=== PATIENT | female | born 1980 | race Caucasian/White ===

== ENCOUNTER 2018-03-15 16:50 | Emergency (ER) | payer OTHER ==
--- NOTE | 2018-03-15 18:00 | ED Physician Documentation ---
PD HPI CHEST PAIN - Stated complaint Stated Complaint: CP/BACK PX/DIFFICULTY BREATHING - Chief complaint Chief Complaint: Cardiac - History obtained from History obtained from: Patient - History of Present Illness Timing - onset: Other (Over the last month she has had pretty 3 brief episodes of right upper chest pain that is worse if she leans forward or takes a deep breath. The first 1 was about a month ago and lasted for several hours, then had it again about a week later. Today she was sitting in a meeting and developed this again. It is gone at this juncture. She has not had recent significant travel, leg pain or swelling. No hemoptysis. She is not on control.) Review of Systems Constitutional: denies: Fever, Chills Cardiac: denies: Palpitations Respiratory: denies: Dyspnea, Cough, Hemoptysis, Wheezing GI: denies: Abdominal Pain PD PAST MEDICAL HISTORY - Allergies Allergies/Adverse Reactions: Allergies Allergy/AdvReac Type Severity Reaction Status Date / Time No Known Drug Allergies Allergy Verified 03/15/18 17:06 PD ED PE NORMAL - Vitals Vital signs reviewed: Yes - General General: Alert and oriented X 3, No acute distress - HEENT HEENT: PERRL, EOMI - Neck Neck: Supple, no meningeal sign, No bony TTP - Cardiac Cardiac: RRR, No murmur - Respiratory Respiratory: No respiratory distress, Clear bilaterally, Other (Mild right upper chest wall tenderness reproduces her pain.) - Abdomen Abdomen: Non tender - Extremities Extremities: No edema, No calf tenderness / cord Results - Vitals Vitals: Vital Signs - 24 hr 03/15/18 17:03 Temperature 36.1 C L Heart Rate 68 Respiratory 16 Rate Blood Pressure 126/71 O2 Saturation 98 Oxygen O2 Source Room air - EKG (time done) 709 Rate: Rate (enter#) (62) Rhythm: NSR [place]: Normal Intervals: Normal RI QRS: Normal Ischemia: Normal ST segments Computer interpretation: Agree with computer - Labs Labs: Laboratory Tests 03/15/18 03/15/18 03/15/18 17:54 17:54 17:54 WBC 10.0 RBC 4.95 Hgb 14.9 Hct 42.5 MCV 85.9 MCH 30.0 MCHC 35.0 RDW 12.4 Plt Count 362 MPV 7.7 L Neut # (Auto) 5.9 Lymph # (Auto) 3.1 [place] # (Auto) 0.6 Eos # (Auto) 0.3 Baso # (Auto) 0.1 Absolute Nucleated RBC 0.00 Nucleated RBC % 0.0 Sodium 137 Potassium 3.6 Chloride 103 Carbon Dioxide 25 Anion Gap 9.0 BUN 17 Creatinine 0.7 Estimated GFR (MDRD) 93 Glucose 93 Calcium 9.1 Total Bilirubin 0.4 AST 17 ALT 22 Alkaline Phosphatase 61 Troponin I < 0.04 Total Protein 8.0 Albumin 4.6 Globulin 3.4 Albumin/Globulin Ratio 1.4 Lipase 28 - Rads (name of study) CXR Radiology: EMP read contemporaneously (normal) PD MEDICAL DECISION MAKING - ED course ED course: Seems musculoskeletal, heart score 0. - Sepsis Event Vital Signs: Vital Signs - 24 hr 03/15/18 17:03 Temperature 36.1 C L Heart Rate 68 Respiratory 16 Rate Blood Pressure 126/71 O2 Saturation 98 Oxygen O2 Source Room air Departure - Departure Disposition: 01 Home, Self Care Clinical Impression: Chest wall pain Condition: Good Record reviewed to determine appropriate education?: Yes Instructions: ED Chest Pain NonCardiac Comments: Call your doctor to arrange a follow-up appointment, make the next available appointment. In the interim, return anytime if worse or if new symptoms develop.
[2018-03-15 18:02] LABS: BASOPHILS # (AUTO) 0.1 10^3/uL (0.0-0.1); BASOPHILS % (AUTO) 0.5 %; EOSINOPHILS # (AUTO) 0.3 10^3/uL (0.0-0.7); EOSINOPHILS % (AUTO) 2.9 %; HGB - HEMOGLOBIN 14.9 g/dL (12.0-16.0); LYMPHOCYTES # (AUTO) 3.1 10^3/uL (1.5-3.5); LYMPHOCYTES % (AUTO) 31.6 %; MEAN CORPUSCULAR VOLUME 85.9 fL (81.0-99.0); MEAN PLATELET VOLUME 7.7 fL (7.9-10.8); MONOCYTES # (AUTO) 0.6 10^3/uL (0.0-1.0); NEUTROPHILS # (AUTO) 5.9 10^3/uL (1.5-6.6); PLT - PLATELET COUNT 362 10^3/uL (130-450); RED BLOOD COUNT 4.95 10^6/uL (4.20-5.40); RED CELL DISTRIBUTION WIDTH 12.4 % (12.0-15.0)
[2018-03-15 18:13] LABS: ALBUMIN 4.6 g/dL (3.2-5.5); ALBUMIN/GLOBULIN RATIO 1.4 (1.0-2.2); BILIRUBIN,TOTAL 0.4 mg/dL (0.2-1.0); CALCIUM 9.1 mg/dL (8.5-10.3); CREATININE 0.7 mg/dL (0.4-1.0)
--- NOTE | 2018-03-15 18:16 | XRAY Report ---
Reason: chest pain Procedure Date: 03/15/2018 Accession Number: [id number] / [id number] Procedure: XR - Chest 2 View X-Ray CPT Code: 01583 FULL RESULT: EXAM: CHEST RADIOGRAPHY EXAM DATE: 03/15/2018 05:46 PM. CLINICAL HISTORY: Chest pain. COMPARISON: None. TECHNIQUE: 2 views. FINDINGS: Lungs/Pleura: No focal opacities evident. No pleural effusion. No pneumothorax. Normal volumes. Mediastinum: Heart and mediastinal contours are unremarkable. Other: None. IMPRESSION: 1. No acute pulmonary process. RADIA
[2018-03-15 18:25] VITALS: BP 126/59
== END 2018-03-15 18:27 | disposition home or self-care (01) ==
LOC: ED 16:50
DX: R07.89 Other chest pain (principal)
CPT/HCPCS: 36415; 71046; 80053; 83690; 84484; 85025; 93005; 99283

== ENCOUNTER 2021-10-26 14:32 | Emergency (ER) | payer OTHER ==
[2021-10-26 14:46] VITALS: BP 136/82
--- NOTE | 2021-10-26 15:20 | ED Physician Documentation ---
PD HPI LOWER EXT INJURY - Stated complaint Stated Complaint: RT LEG INJ - Chief complaint Chief Complaint: Ext Problem - History obtained from History obtained from: Patient - History of Present Illness PD HPI LOW EXT INJURY LOCATION: Right, Calf Type of injury: Twist (playing pickleball and went to jump slightly and felt a pop and pain in back of calf. Pain with walking, the step off portion of gait. Less pain if walks flatfooted. No bruising.) Where injury occurred[place] Timing - onset: Yesterday Timing - duration: Days (1) Timing - details: Abrupt onset, Still present Improved by: Rest Worsened by: Moving (walking and plantarflexion.), Palpating Associated symptoms: Swelling (some in calf but mild.). No: Weakness, Numbness, Discolored (no bruising as yet.) Similar symptoms before: Has not had sx before Review of Systems Skin: denies: Abrasion (s), Laceration (s) Musculoskeletal: denies: Back pain Neurologic: denies: Focal weakness, Numbness PD PAST MEDICAL HISTORY - Past Medical History Cardiovascular: None Respiratory: None Endocrine/Autoimmune: None Musculoskeletal: None - Allergies Allergies/Adverse Reactions: Allergies Allergy/AdvReac Type Severity Reaction Status Date / Time No Known Drug Allergies Allergy Verified 10/26/21 14:45 PD ED PE NORMAL - Vitals Vital signs reviewed: Yes - General General: Alert and oriented X 3, No acute distress, Well developed/nourished - Derm Derm: Normal color, Warm and dry, No rash - Extremities Extremities: Other (right dalf with tenderness mid calf, more lateral than medial. No soft spot noted. The Achilles tendon is intact and not tender. Plantarflexion is painful but no obvious bunching of muscle in calf area. ) - Neuro Neuro: Alert and oriented X 3, No motor deficit, No sensory deficit Results - Vitals Vitals: Oxygen O2 Source Room air PD MEDICAL DECISION MAKING - ED course Complexity details: considered differential (clinically a tear of portion of calf muscle. Not tender over fibula nor ankle. Achilles is not tender/injured. Can treat with guarding ROM of the ankle to lessen calf muscle use.), d/w patient Departure - Departure Disposition: 01 Home, Self Care Clinical Impression: Gastrocnemius muscle tear Qualifiers: Encounter type: initial encounter Laterality: right Qualified Code(s): S86.111A - Strain of other muscle(s) and tendon(s) of posterior muscle group at lower leg level, right leg, initial encounter Condition: Stable Record reviewed to determine appropriate education?: Yes Instructions: Gastrocnemius Muscle Tear Follow-Up: Orthopedic Care [Provider Group] Comments: Use the boot orthosis to reduce motion and stress on the calf muscles while this is healing. It sounds likely that you have a small tear of muscle fibers in the calf muscle. This should heal with protected use over the next 2 to 3 weeks. Elevate ice and rest the calf periodically over the next couple of days. Avoid jumping, running or forceful use of the ankle and calf muscles while its healin g. Again use the cast boot to reduce and protect motion in the calf muscles initially. You can discontinue use of it as you are feeling better but still avoid vigorous use of the muscles for about 2 to 3 weeks until fully healed. It could take even a little bit longer to be without pain on use but a few weeks should be time enough for it to be healing reasonably. Follow-up with orthopedics if not steadily improving over the next few weeks. Discharge Date/Time: 10/26/21 16:05
== END 2021-10-26 16:05 | disposition home or self-care (01) ==
LOC: ED 14:32
DX: S86.111A Strain of other muscle(s) and tendon(s) of posterior muscle group at lower leg level, right leg, initial encounter (principal); X50.1XXA Overexertion from prolonged static or awkward postures, initial encounter; Y93.67 Activity, basketball; Y92.830 Public park as the place of occurrence of the external cause
CPT/HCPCS: 99282

== ENCOUNTER 2022-03-14 19:41 | Emergency (ER) | payer OTHER ==
[2022-03-14] MEDS ORDERED: IBUPROFEN 600 MG TABLET PO STA (21:40)
--- NOTE | 2022-03-14 21:43 | ED Physician Documentation ---
PD HPI LOWER EXT INJURY - Stated complaint Stated Complaint: R LEG INJ - Chief complaint Chief Complaint: Trauma Ext - History obtained from History obtained from: Patient - Additional information Additional information: The patient comes to the emergency department chief complaint of right calf pain and swelling after an injury approximately an hour ago. The patient states she was playing volleyball when she went to jump for a ball and felt a sudden pop and "squishy" in her right calf muscle. She states that she has noticed pain migrating through her entire calf and some swelling as well. Patient denies numbness or tingling. 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 She states she has had a muscle strain previously in her calf she does not remember which one. The patient states that this was earlier this year. No other complaints at this time. The patient was not injured in any other way. She states there is no pain or swelling prior to the injury. She is very active. She states that her sister had a blood clot after being bedbound with sepsis. Review of Systems Ten Systems: 10 systems reviewed and negative Constitutional: reports: Reviewed and negative Eyes: reports: Reviewed and negative Ears: reports: Reviewed and negative Nose: reports: Reviewed and negative Throat: reports: Reviewed and negative Cardiac: reports: Reviewed and negative Respiratory: reports: Reviewed and negative GI: reports: Reviewed and negative : reports: Reviewed and negative Skin: reports: Reviewed and negative Musculoskeletal: reports: Extremity pain, Extremity swelling, Pain with weight bearing Neurologic: reports: Reviewed and negative Psychiatric: reports: Reviewed and negative Endocrine: reports: Reviewed and negative Immunocompromised: reports: Reviewed and negative PD PAST MEDICAL HISTORY - Past Medical History Cardiovascular: None Respiratory: None Endocrine/Autoimmune: None Musculoskeletal: None - Present Medications Home Medications: Ambulatory Orders Medication Instructions Recorded Confirmed Phentermine HCl 30 mg PO DAILY 03/14/22 03/14/22 - Allergies Allergies/Adverse Reactions: Allergies Allergy/AdvReac Type Severity Reaction Status Date / Time No Known Drug Allergies Allergy Verified 03/14/22 19:59 PD ED PE NORMAL - Vitals Vital signs reviewed: Yes - General General: Alert and oriented X 3, No acute distress, Well developed/nourished - HEENT HEENT: Atraumatic, PERRL, EOMI, Moist mucous membranes - Neck Neck: Supple, no meningeal sign - Cardiac Cardiac: Strong equal pulses - Respiratory Respiratory: No respiratory distress - Derm Derm: Normal color, Warm and dry, No rash - Extremities Extremities: No deformity, Other (Moderate tenderness right calf. No firmness. Patient's Achilles tendon is intact. No joint tenderness or swelling. No deformity.) - Neuro Neuro: Alert and oriented X 3 - Psych Psych: Normal mood, Normal affect Results - Vitals Vitals: Vital Signs - 24 hr 03/14/22 03/14/22 19:54 21:51 Temperature 36.5 C Heart Rate 72 74 Respiratory 16 14 Rate Blood Pressure 144/85 H 136/92 H O2 Saturation 98 98 Oxygen O2 Source Room air PD MEDICAL DECISION MAKING - ED course Complexity details: considered differential, d/w patient ED course: I discussed with the patient that I feel her symptoms are most consistent with a muscle strain. At this point in time, I do not find any evidence of a compartment syndrome and feel this is unlikely. We have discussed symptoms which should raise concern for compartment syndrome and should prompt the patient to return to the emergency department without delay. At this point in time, I have recommended elevation, ice, and anti-inflammatories. Departure - Departure Disposition: 01 Home, Self Care Clinical Impression: Strain of right calf muscle Condition: Stable Instructions: ED Strain Muscle Ext Forms: Activity restrictions Discharge Date/Time: 03/14/22 21:51
[2022-03-14] MEDS ORDERED: IBUPROFEN 800 MG TABLET PO STA (21:44)
[2022-03-14 21:52] VITALS: BP 136/92
== END 2022-03-14 21:51 | disposition home or self-care (01) ==
LOC: ED 19:41
DX: S86.911A Strain of unspecified muscle(s) and tendon(s) at lower leg level, right leg, initial encounter (principal); X58.XXXA Exposure to other specified factors, initial encounter; Y93.68 Activity, volleyball (beach) (court)
CPT/HCPCS: 99282; A9270

== ENCOUNTER 2023-01-27 14:39 | Outpatient (CLI) | payer OTHER ==
--- NOTE | 2023-02-01 09:13 | Ultrasound Report ---
PROCEDURE: Pelvic w/Transvaginal INDICATIONS: PELVIC PAIN TECHNIQUE: Real-time scanning was performed of the pelvic organs, with image documentation. Additional endovagi nal scanning was necessary due to incomplete visualization of the adnexal and endometrial structures by transabdominal scanning. COMPARISON: None. FINDINGS: Uterus: Uterus is anteverted and normal in size at 9.0 x 3.4 x 4.3 cm. The myometrium is homogeneou s. The endometrium measures 0.4 mm in combined thickness. Echogenic focus within the cervix measuri ng 7 x 8 x 7 mm. Ovaries: The right ovary measures 2.8 x 1.0 x 1.7 cm, with a calculated ovarian volume of 2.5 cc. T he left ovary measures 1.6 x 1.2 x 1.4 cm, with a calculated ovarian volume of 25 cc. The ovaries cerda ve a normal sonographic appearance. Less than 12 follicles can be seen in each ovary. No adnexal ma sses are seen. No cystic lesions measuring greater than 3 cm. Other: No pathologic free abdominal or pelvic fluid. IMPRESSION: Echogenic focus at the cervix measuring 7 x 8 x 7 mm. Findings probably represent a hemorrhagic nabot hian cyst or proteinaceous nabothian cyst, less likely solid mass. Recommend follow-up in 3 months to ensure resolution. Reviewed by: Guillermo Michaud on 02/01/2023 9:11 AM PDT Approved by: Guillermo Michaud on 02/01/2023 9:11 AM PDT Station ID: [id number]
== END 2023-01-27 14:40 | disposition home or self-care (01) ==
LOC: DI 14:39
PROVIDERS: ATTEND Student in an Organized Health Care Education/Training Program
DX: R10.2 Pelvic and perineal pain (principal); R93.89 Abnormal findings on diagnostic imaging of other specified body structures

== ENCOUNTER 2023-03-22 06:49 | Outpatient (CLI) | payer OTHER ==
[2023-03-23 07:10] LABS: ESTRADIOL 67.3 pg/mL (.); PROGESTERONE 0.2 ng/mL (.); SEX HORM BINDING GLOB SERUM 27.6 nmol/L (24.6-122.0)
[2023-03-23 20:07] LABS: FREE TESTOSTERONE(DIRECT) 2.4 pg/mL (0.0-4.2)
[2023-03-27 11:09] LABS: DHEA SERUM 197 ng/dL (31-701)
[2023-03-28 01:08] LABS: 17-OH PROGESTERONE LCMS 23 ng/dL (.)
== END 2023-03-22 06:50 | disposition home or self-care (01) ==
LOC: LAB 06:49
PROVIDERS: ATTEND Nurse Practitioner
DX: N95.1 Menopausal and female climacteric states (principal)
CPT/HCPCS: 36415; 82397; 82626; 82670; 83001; 83498; 84144; 84270; 84402; 84403

== ENCOUNTER 2023-04-23 20:44 | Emergency (ER) | payer OTHER ==
[2023-04-23 21:01] VITALS: BP 141/84; O2SAT 100
[2023-04-23] MEDS ORDERED: DEXAMETHASONE 10 MG/ML VIAL PO STA (21:13)
[2023-04-23] MEDS ORDERED: CHERRY SYRUP 10 ML UDC PO ONE (21:13)
[2023-04-23 21:15] LABS: RAPID STREP SCREEN Negative (Negative)
--- NOTE | 2023-04-23 21:30 | ED Physician Documentation ---
History of Present Illness - Stated complaint Stated Complaint: THROAT PX - Chief complaint Chief Complaint: Heent - Additonal information Additional information: 42-year-old female here for evaluation of a sore throat that began with cough cold and congestion about 1 week ago. No fevers nausea vomiting chest pain or shortness of air. Mostly concerned she could have strep. Review of Systems Constitutional: denies: Fever Nose: reports: Congestion Throat: reports: Sore throat Respiratory: reports: Cough. denies: Dyspnea GI: reports: Reviewed and negative PD PAST MEDICAL HISTORY - Past Medical History Cardiovascular: None Respiratory: None Endocrine/Autoimmune: None Musculoskeletal: None - Past Surgical History Past Surgical History: Yes General: Appendectomy - Present Medications Home Medications: Ambulatory Orders Medication Instructions Recorded Confirmed Phentermine HCl 30 mg PO DAILY 03/14/22 04/23/23 - Allergies Allergies/Adverse Reactions: Allergies Allergy/AdvReac Type Severity Reaction Status Date / Time No Known Drug Allergies Allergy Verified 04/23/23 20:54 - Social History Does the pt smoke?: No Smoking Status: Never smoker Does the pt drink ETOH?: Yes Does the pt have substance abuse?: No - Immunizations Immunizations are current?: Yes PD ED PE NORMAL - General General: Alert and oriented X 3, No acute distress, Well developed/nourished - HEENT HEENT: Atraumatic, Moist mucous membranes, Pharynx benign (no posterior oropharynx erythema or exudate. Uvula is midline. No soft palate asymmetry or swelling. No posterior pharynx erythema. No exudate. Uvula is midline. No soft palate asymmetry or swelling.) - Neck Neck: No adenopathy - Cardiac Cardiac: RRR, No murmur - Respiratory Respiratory: Clear bilaterally Results - Vitals Vitals: Vital Signs - 24 hr 04/23/23 20:51 Temperature 37 C Heart Rate 88 Respiratory 16 Rate Blood Pressure 141/84 H O2 Saturation 100 Oxygen O2 Source Room air - Labs Labs: Laboratory Tests 04/23/23 21:01 Group A Strep Rapid Negative PD Medical Decision Making - ED course Complexity details: reviewed results, re-evaluated patient, d/w patient ED course: For well-appearing 42-year-old female here for evaluation of several days sore throat in the setting of previous cough congestion. No fevers. Is very benign ENT exam. Clinically history is most suggestive of a viral pharyngitis. Rapid strep is negative. Patient was given a single dose of Decadron here in the ER. Will defer antibiotics unless culture positive. Clinically there is nothing to suggest RPA or [employer] IT PROJECT [employer]. Usual emergent return precautions were discussed for worsening symptoms. Departure - Departure Disposition: 01 Home, Self Care Clinical Impression: Viral pharyngitis Condition: Stable Record reviewed to determine appropriate education?: Yes Instructions: ED Pharyngitis Viral Comments: your strep testing today is negative. A virus has most likely caused yoru symptoms. We have given you a single dose of a steroid today which will help with pain and inflammation over the next3-4 days. i would expect your symptoms to be improving markedly over the next several days. Return sooner to the ED for worsening symptoms, inability to swallow or speak normally Forms: PCP List
== END 2023-04-23 21:38 | disposition home or self-care (01) ==
LOC: ED 20:44
DX: J02.9 Acute pharyngitis, unspecified (principal)
CPT/HCPCS: 87070; 87430; 99283; A9270

== ENCOUNTER 2023-04-24 18:47 | Outpatient (CLI) | payer OTHER ==
--- NOTE | 2023-04-25 19:19 | Ultrasound Report ---
PROCEDURE: Pelvic w/Transvaginal INDICATIONS: IRREGULAR PERIODS TECHNIQUE: Real-time scanning was performed of the pelvic organs, with image documentation. Additional endovagi nal scanning was necessary due to incomplete visualization of the adnexal and endometrial structures by transabdominal scanning. COMPARISON: 01/27/2023 FINDINGS: Uterus: Uterus is anteverted and normal in size at 9.1 x 4.0 x 5.0 cm. The myometrium is heterogene ous. The endometrium measures 12.4 mm in combined thickness. No fibroids. There is stable clustered calcifications in the cervix. Ovaries: The right ovary measures 2.2 x 2.1 x 2.1 cm, with a calculated ovarian volume of 5 cc. The left ovary measures 3.2 x 3.1 x 3.3 cm, with a calculated ovarian volume of 16.5 cc. The ovaries cerda ve a normal sonographic appearance. Less than 12 follicles can be seen in each ovary. No adnexal ma sses are seen. No cystic lesions measuring greater than 3 cm. There is a 1.2 cm cyst in the right ova ry. There is a 1.7 cm cyst in the left ovary. Other: No pathologic free abdominal or pelvic fluid. IMPRESSION: 1. Stable clustered calcifications in the cervix. 2. Otherwise unremarkable pelvic ultrasound. Reviewed by: Joshua Larose MD on 04/25/2023 7:18 PM PST Approved by: Joshua Larose MD on 04/25/2023 7:18 PM PST Station ID: [id number]
== END 2023-04-24 18:48 | disposition home or self-care (01) ==
LOC: DI 18:47
PROVIDERS: ATTEND Nurse Practitioner
DX: N88.8 Other specified noninflammatory disorders of cervix uteri (principal); N92.6 Irregular menstruation, unspecified

== ENCOUNTER 2023-05-09 12:57 | Outpatient (CLI) | payer OTHER ==
[~2023-05-09 12:57] MED LIST: GADOTERATE MEGLUMINE 10 MMOL/20 ML VIAL ONE
[2023-05-09] MEDS ORDERED: GADOTERATE MEGLUMINE 10 MMOL/20 ML VIAL IVP ONE (18:26)
--- NOTE | 2023-05-10 09:11 | MRI Report ---
PROCEDURE: PELVIS W/WO INDICATIONS: PELVIC PAIN TECHNIQUE: Multiple magnetic resonance images were obtained of the pelvis with and without contrast. IV contrast was used. COMPARISON: Pelvic ultrasound 04/24/2023 FINDINGS: Image quality: There is mild motion artifact on some sequences. Lower abdomen: No bowel obstruction. No pathologic ascites or abscess. Bladder: Underdistended, unremarkable. Reproductive organs: The cervix appears unremarkable, a few small nabothian cysts are seen. The endom etrium measures 9 to 10 mm, which is within normal limits for age. No discrete endometrial mass lesio n identified. The anterior junctional zone is focally thickened measuring about 1.3 cm. The posterior junctional zone is normal thickness. The ovaries appear nonenlarged, with small follicles. On precontrast T1-weighted images, no evidence of deep pelvic endometriosis deposits or endometrioma. One of the nabothian cysts identified in the left lower cervix has hyperintense T1 signal (). Rectum: Unremarkable Vessels and lymph nodes: No aneurysmal vessel or pathologic lymph nodes identified. Pelvic wall: Unremarkable Bones: No acute or suspicious finding. Lower lumbar degenerative changes are partially seen. IMPRESSION: No evidence of endometrioma or deep pelvic active T1 hyperintense endometriosis deposits. There are small nabothian cysts in the cervix, including intrinsically T1 hyperintense cysts in the l eft lower segment, which may represent hemorrhagic contents Focal thickening of the anterior junctional zone the uterus measuring 1.3 cm in thickness, which may represent focal adenomyosis versus a FIGO 2 fibroid. Reviewed by: Jl Diaz MD on 05/10/2023 9:10 AM PST Approved by: Jl Diaz MD on 05/10/2023 9:10 AM PST Station ID: [id number]
== END 2023-05-09 12:58 | disposition home or self-care (01) ==
LOC: DI 12:57
PROVIDERS: ATTEND Nurse Practitioner
DX: N88.8 Other specified noninflammatory disorders of cervix uteri (principal); R10.2 Pelvic and perineal pain
CPT/HCPCS: 72197; A9575

== ENCOUNTER 2023-06-20 10:45 | Outpatient (CLI) | payer OTHER | END 2023-06-20 11:00 | disposition home or self-care (01) | LOC: LAB.N 10:45 | PROVIDERS: ATTEND Physician Assistant Medical | DX: J02.9 Acute pharyngitis, unspecified (principal) | CPT/HCPCS: 87070 ==

== ENCOUNTER 2023-06-24 07:31 | Emergency (ER) | payer OTHER ==
[2023-06-24 08:27] VITALS: BP 148/81; O2SAT 98
[2023-06-24 09:02] LABS: RAPID STREP SCREEN Negative (Negative)
[2023-06-24 09:39] LABS: B. PARAPERTUSSIS- RESP PCR PAN NOT DETECTED; B. PERTUSSIS- RESP PCR PANEL NOT DETECTED; C. PNEUMONIAE- RESP PCR PANEL NOT DETECTED; CORONAVIRUS 229E-RESP PCR NOT DETECTED; CORONAVIRUS HKU1-RESP PCR NOT DETECTED; CORONAVIRUS NL63-RESP PCR NOT DETECTED; CORONAVIRUS OC43-RESP PCR NOT DETECTED; HUMAN METAPNEUMOVIRUS NOT DETECTED; INFLUENZA A- RESP PCR PANEL NOT DETECTED; INFLUENZA B - RESP PCR PANEL NOT DETECTED; M. PNEUMONIAE- RESP PCR PANEL NOT DETECTED; PARAINFLUENZA VIRUS 1 NOT DETECTED; PARAINFLUENZA VIRUS 2 NOT DETECTED; PARAINFLUENZA VIRUS 3 NOT DETECTED; PARAINFLUENZA VIRUS 4 NOT DETECTED; RHINOVIRUS/ENTEROVIRUS NOT DETECTED; RSV- RESP PCR PANEL NOT DETECTED; SARS-CoV-2 -RESP PCR PANEL NOT DETECTED
== END 2023-06-24 08:52 | disposition left against medical advice (07) ==
LOC: ED 07:31
DX: Z53.21 Procedure and treatment not carried out due to patient leaving prior to being seen by health care provider (principal)
CPT/HCPCS: 87070; 87430; 87633

== ENCOUNTER 2023-09-25 19:31 | Emergency (ER) | payer OTHER ==
[2023-09-25 20:19] LABS: BASOPHILS % (AUTO) 0.2 %; EOSINOPHILS % (AUTO) 0.2 %; HCT - HEMATOCRIT 43.4 % (37.0-47.0); HGB - HEMOGLOBIN 14.3 g/dL (12.0-16.0); LYMPHOCYTES # (AUTO) 0.7 10^3/uL (1.5-3.5); LYMPHOCYTES % (AUTO) 5.2 %; MEAN CORPUSCULAR HEMOGLOBIN 27.1 pg (27.0-31.0); MEAN CORPUSCULAR HGB CONC 32.9 g/dL (32.0-36.0); MEAN CORPUSCULAR VOLUME 82.4 fL (81.0-99.0); MEAN PLATELET VOLUME 9.5 fL (7.9-10.8); MONOCYTES # (AUTO) 0.4 10^3/uL (0.0-1.0); MONOCYTES % (AUTO) 3.4 %; NEUTROPHILS # (AUTO) 11.8 10^3/uL (1.5-6.6); NEUTROPHILS % (AUTO) 90.6 %; PLT - PLATELET COUNT 389 10^3/uL (130-450); RED BLOOD COUNT 5.27 10^6/uL (4.20-5.40); RED CELL DISTRIBUTION WIDTH 13.5 % (12.0-15.0)
[2023-09-25 20:30] LABS: ALBUMIN 4.2 g/dL (3.2-5.5); ALBUMIN/GLOBULIN RATIO 1.2 (1.0-2.2); ALKALINE PHOSPHATASE 79 IU/L (42-121); ALT ALANINE AMINOTRANSFERASE 24 IU/L (10-60); AST ASPARTATE AMINOTRANSFERASE 15 IU/L (10-42); BILIRUBIN,TOTAL 0.5 mg/dL (0.2-1.0); BUN - BLOOD UREA NITROGEN 13 mg/dL (6-20); CALCIUM 9.1 mg/dL (8.5-10.3); CARBON DIOXIDE - CO2 23 mmol/L (21-32); CHLORIDE 104 mmol/L (101-111); CREATININE 0.7 mg/dL (0.6-1.3); GFR - MDRD 91 (>89); GLUCOSE 112 mg/dL (74-104); POTASSIUM 3.6 mmol/L (3.5-4.5); SODIUM 135 mmol/L (135-145); TOTAL PROTEIN 7.6 g/dL (6.4-8.9)
--- NOTE | 2023-09-25 20:30 | ED Physician Documentation ---
History of Present Illness - Stated complaint Stated Complaint: N/V/D - Chief complaint Chief Complaint: Abd Pain - Additonal information Additional information: Patient 42-year-old female presenting to the emergency department with chief co mplaint abdominal pain, nausea, vomiting, diarrhea. Symptoms ongoing x 2-3 days. Has been intolerant of p.o. fluids for the last 2- 3 days. Reports 1 known sick contact, older son had similar symptoms approximately 1 week ago. Reports subjective fever at home. Endorses for history of previous appendectomy in childhood. Denies other surgical history. Review of Systems Constitutional: reports: Fever Eyes: denies: Loss of vision Ears: denies: Loss of hearing Nose: denies: Rhinorrhea / runny nose Throat: denies: Dental pain / toothache Cardiac: denies: Chest pain / pressure Respiratory: denies: Dyspnea GI: reports: Abdominal Pain, Nausea, Vomiting, Diarrhea : denies: Dysuria Skin: denies: Rash Musculoskeletal: denies: Neck pain Neurologic: denies: Generalized weakness Psychiatric: denies: Depressed PD PAST MEDICAL HISTORY - Past Medical History Past Medical History: No Cardiovascular: None Respiratory: None Endocrine/Autoimmune: None Musculoskeletal: None - Past Surgical History Past Surgical History: Yes General: Appendectomy - Present Medications Home Medications: Ambulatory Orders Medication Instructions Recorded Confirmed Phentermine HCl 30 mg PO DAILY 03/14/22 09/25/23 Loratadine [Claritin] 10 mg PO DAILY 09/25/23 09/25/23 Ondansetron Odt [Zofran] 4 mg TL Q6H PRN #10 tablet 09/25/23 buPROPion [Wellbutrin Sr] 150 mg PO DAILY 09/25/23 09/25/23 - Allergies Allergies/Adverse Reactions: Allergies Allergy/AdvReac Type Severity Reaction Status Date / Time No Known Drug Allergies Allergy Verified 09/25/23 19:44 - Social History Does the pt smoke?: No Smoking Status: Never smoker Does the pt drink ETOH?: Yes Does the pt have substance abuse?: No - Immunizations Immunizations are current?: Yes PD ED PE NORMAL - General General: Alert and oriented X 3, No acute distress, Well developed/nourished - HEENT HEENT: Atraumatic, PERRL, EOMI, Ears normal, Moist mucous membranes, Pharynx benign - Neck Neck: Supple, no meningeal sign, No bony TTP, No adenopathy, Thyroid normal, No JVD - Cardiac Cardiac: RRR - Respiratory Respiratory: No respiratory distress - Abdomen Abdomen: Normal bowel sounds, Other (Diffuse tenderness without guarding, rebound, rigidity.). No: Non tender - Female Female : Deferred - Rectal Rectal: Deferred - Back Back: No CVA TTP Results - Vitals Vitals: Vital Signs - 24 hr 09/25/23 09/25/23 09/25/23 19:40 21:44 22:22 Temperature 36.5 C Heart Rate 94 82 80 Respiratory 15 16 16 Rate Blood Pressure 130/65 119/62 O2 Saturation 100 100 100 Oxygen O2 Source Room air - Labs Labs: Laboratory Tests 09/25/23 09/25/23 09/25/23 19:59 19:59 20:39 WBC 13.0 H RBC 5.27 Hgb 14.3 Hct 43.4 MCV 82.4 MCH 27.1 MCHC 32.9 RDW 13.5 Plt Count 389 MPV 9.5 Neut # (Auto) 11.8 H Lymph # (Auto) 0.7 L [place] # (Auto) 0.4 Eos # (Auto) 0.0 Baso # (Auto) 0.0 Absolute Nucleated RBC 0.00 Nucleated RBC % 0.0 Sodium 135 Potassium 3.6 Chloride 104 Carbon Dioxide 23 Anion Gap 8.0 BUN 13 Creatinine 0.7 Estimated GFR (MDRD) 91 Glucose 112 H Calcium 9.1 Total Bilirubin 0.5 AST 15 ALT 24 Alkaline Phosphatase 79 Total Protein 7.6 Albumin 4.2 Globulin 3.4 Albumin/Globulin Ratio 1.2 Lipase < 10 L Urine Color YELLOW Urine Clarity CLEAR Urine pH 6.0 Ur Specific George 1.025 Urine Protein NEGATIVE Urine Glucose (UA) NEGATIVE Urine Ketones NEGATIVE Urine Occult Blood NEGATIVE Urine Nitrite NEGATIVE Urine Bilirubin NEGATIVE Urine Urobilinogen 0.2 (NORMAL) Ur Leukocyte Esterase NEGATIVE Ur Microscopic Review NOT INDICATED Urine Culture Comments NOT INDICATED Urine HCG, Qual 09/25/23 20:39 WBC RBC Hgb Hct MCV MCH MCHC RDW Plt Count MPV Neut # (Auto) Lymph # (Auto) [place] # (Auto) Eos # (Auto) Baso # (Auto) Absolute Nucleated RBC Nucleated RBC % Sodium Potassium Chloride Carbon Dioxide Anion Gap BUN Creatinine Estimated GFR (MDRD) Glucose Calcium Total Bilirubin AST ALT Alkaline Phosphatase Total Protein Albumin Globulin Albumin/Globulin Ratio Lipase Urine Color Urine Clarity Urine pH Ur Specific George Urine Protein Urine Glucose (UA) Urine Ketones Urine Occult Blood Urine Nitrite Urine Bilirubin Urine Urobilinogen Ur Leukocyte Esterase Ur Microscopic Review Urine Culture Comments Urine HCG, Qual NEGATIVE PD Medical Decision Making - ED course Complexity details: reviewed results, re-evaluated patient, considered elsie damian, d/w patient ED course: Patient 42-year-old female presenting to the emergency department with nausea, vomiting, diarrhea, abdominal pain. Afebrile, he medically stable. Initial differential diagnosis included but not limited to perforated viscus, bowel obstruction, viral enteritis. Labs demonstrate mild leukocytosis but no leukocytosis but no severe electrolyte abnormality, renal or hepatic dysfunction. CT of the abdomen pelvis shows fluid-filled loops of bowel consistent with enteritis, likely viral as well as some hepatic steatosis and an incidentally noted pulmonary nodule. All results communicated directly to patient. Patient received medication for pain control and was monitored carefully after its administration as well as medication for nausea and vomiting. Will discharge course antinausea medications and encourage follow-up with primary care. Clear return precautions given. Departure - Departure Disposition: 01 Home, Self Care Clinical Impression: Viral enteritis, Hepatic steatosis, Pulmonary nodule Instructions: ED Viral Syndrome Prescriptions: Ondansetron Odt [Zofran] 4 mg TL Q6H PRN #10 tablet PRN Reason: Nausea / Vomiting Comments: Thank you for allowing us to care for you today [facility]. Today in the emergency department you were evaluated for any possible dangerous or life-threatening medical emergency. All the testing performed in the emergen cy department today was very reassuring. Your CT scan showed findings consistent with a viral enteritis or stomach bug. I written medication for pain control as well as some medication to have at home for any ongoing nausea. Please endeavor to stay well-hydrated at home by having small continual sips of fluid throughout the days. Your symptoms should be resolving within the next few days. If they worsen at any time or if they are persistent with no appreciable improvement within the next 3 to 4 days please follow-up with your primary care doctor or return to the emergency department. As an incidental finding you were noted to have some hepatic steatosis, this is not an uncommon finding for those who eat a Western high triglyceride diet but it is something you want to follow-up with your primary care doctor concerning. You were also found to have a very small pulmonary nodule that may also require some follow-up. Forms: PCP List
[2023-09-25 20:32] LABS: LIPASE < 10 U/L (11-82)
[2023-09-25] MEDS: SODIUM CHLORIDE 0.9% 1,000 ML IV STA (20:40)
[2023-09-25] MEDS: ONDANSETRON 4 MG/2 ML VIAL IVP STA (20:42)
[2023-09-25 20:47] LABS: BILIRUBIN,URINE NEGATIVE (NEGATIVE); GLUCOSE, URINE (UA) NEGATIVE (NEGATIVE); KETONES,URINE (UA) NEGATIVE (NEGATIVE); LEUKOCYTE ESTERASE, URINE NEGATIVE (NEGATIVE); NITRITE,URINE NEGATIVE (NEGATIVE); OCCULT BLOOD,URINE NEGATIVE (NEGATIVE); PROTEIN,URINE NEGATIVE (NEGATIVE); UROBILINOGEN,URINE 0.2 (NORMAL) E.U./dL (NORMAL)
[2023-09-25 20:49] LABS: CLARITY,URINE CLEAR (CLEAR); HCG UR QUAL NEGATIVE
[2023-09-25] MEDS: HYDROmorphone 1 MG/ML CARPUJECT IVP STA (20:49)
[2023-09-25] MEDS ORDERED: iohexoL-300 100 ML VIAL ONE (20:49)
[2023-09-25] MEDS: iohexoL-300 100 ML VIAL IVP ONE (21:10)
--- NOTE | 2023-09-25 22:13 | CT Report ---
PROCEDURE: Abdomen/Pelvis W INDICATIONS: Diffuse abd pain CONTRAST: Omni 300 100ml TECHNIQUE: After the administration of intravenous contrast, a CT scan of the abdomen and pelvis was performed. Images were recorded and evaluated at appropriate window settings. Reformats: coronal and sagittal. F or radiation dose reduction, the following was used: automated exposure control, adjustment of mA and /or kV according to patient size. COMPARISON: Pelvic MRI pelvis, 05/09/2026. Pelvic ultrasound, 04/24/2023. FINDINGS: Image quality: Diagnostic. Lower chest: There is a 3 mm nodule in the left lower lobe (series 8 image 22). Liver: Normal size. Mild hepatic steatosis. No solid mass. Gallbladder and biliary tree: Gallbladder is normal. No biliary dilation Spleen: No splenomegaly. Pancreas: No pancreatic ductal dilation. Adrenals: No adrenal nodule. Kidneys and ureters: No hydronephrosis. No renal cystic lesion which requires follow up. No solid mas s. There is a 3 mm nonobstructive stone in the inferior pole of left kidney. Stomach, bowel and peritoneum: No bowel distension. No pathologic free fluid. Fluid-filled loops of s mall bowel and proximal colon, nonspecific suggesting enteritis. Lymph nodes: No central or retroperitoneal adenopathy. Vessels: No infrarenal aortic aneurysm. PELVIS Reproductive organs: Unremarkable. Bladder: No abnormal wall thickening, accounting for underdistention. Pelvic lymph nodes: No pelvic adenopathy by size criteria. Bones: No aggressive osseous abnormality. Other: No significant ventral or inguinal hernia. IMPRESSION: 1. Fluid-filled loops of small bowel and proximal colon suggesting mild enteritis. 2. Mild hepatic steatosis. 3. A small nonobstructive left renal stone. 4. A 3 mm nodule in the left lower lobe. Please see enclosed follow-up recommendation. Fleischner Society criteria for SOLID lung nodule followup. Nodule size (mm)Low-risk patientHigh-risk patient "d4No follow-up neededFollow-up at 12 mo; if no change, no further follow-up >[id number] CT at 12 mo; if no change, no further follow-up needed.Initial follow-up CT at 6-12 mo, then 18-24 mo if no change. >6-8Initial follow-up CT at 6-12 mo, then 18-24 mo if no change. Initial follow-up CT at 3-6 mo, then 9-12 mo and 24 mo if no change. >8Follow-up CT at 3, 9, 24 mo. Or PET and/or biopsy.Same as for low-risk pts. Reviewed by: Claudia Clinton MD on 09/25/2023 10:12 PM PDT Approved by: Claudia Clinton MD on 09/25/2023 10:12 PM PDT Station ID: [id number]
[2023-09-25] MEDS: HYDROcod/ACET 5/325 Prepack 4 PO STA (22:39)
[2023-09-25] MEDS: ONDANSETRON ODT 4 MG Prepack 2 TL PRN (22:39)
[2023-09-25 22:43] VITALS: BP 116/85; O2SAT 98
[2023-09-25 23:23] LABS: B. PARAPERTUSSIS- RESP PCR PAN NOT DETECTED; B. PERTUSSIS- RESP PCR PANEL NOT DETECTED; C. PNEUMONIAE- RESP PCR PANEL NOT DETECTED; CORONAVIRUS 229E-RESP PCR NOT DETECTED; CORONAVIRUS HKU1-RESP PCR NOT DETECTED; CORONAVIRUS NL63-RESP PCR NOT DETECTED; CORONAVIRUS OC43-RESP PCR NOT DETECTED; HUMAN METAPNEUMOVIRUS NOT DETECTED; INFLUENZA A- RESP PCR PANEL NOT DETECTED; INFLUENZA B - RESP PCR PANEL NOT DETECTED; M. PNEUMONIAE- RESP PCR PANEL NOT DETECTED; PARAINFLUENZA VIRUS 1 NOT DETECTED; PARAINFLUENZA VIRUS 2 NOT DETECTED; PARAINFLUENZA VIRUS 3 NOT DETECTED; PARAINFLUENZA VIRUS 4 NOT DETECTED; RHINOVIRUS/ENTEROVIRUS NOT DETECTED; RSV- RESP PCR PANEL NOT DETECTED; SARS-CoV-2 -RESP PCR PANEL NOT DETECTED
== END 2023-09-25 22:47 | disposition home or self-care (01) ==
LOC: ED 19:31
DX: A08.4 Viral intestinal infection, unspecified (principal); N28.89 Other specified disorders of kidney and ureter; R91.1 Solitary pulmonary nodule; Z11.52 Encounter for screening for COVID-19
CPT/HCPCS: 36415; 74177; 80053; 81003; 81025; 83690; 85025; 87633; 96361; 96374; 96375; 99284; A9270; J1170; Q9967; 81001; 87086